=== PATIENT | female | born 1960 | race Caucasian/White ===

== ENCOUNTER → 2017-12-27 | Outpatient (CLI) | payer OTHER ==
--- NOTE | 2017-12-31 08:57 | Diagnostic Imaging Report ---
#[id number] - MGSCRBIL #BILATERAL DIGITAL SCREENING MAMMOGRAM WITH CAD: 12/27/2017 CLINICAL: Routine screening. Comparison is made to exams dated: 11/23/2016 mammogram and 10/19/2016 mammogram - [facility]. Current study contains 4 films. There are scattered fibroglandular elements in both breasts. Current study was also evaluated with a Computer Aided Detection (CAD) system. There are benign calcifications in both breasts. No significant masses, calcifications, or other findings are seen in either breast. There has been no significant interval change. IMPRESSION: BENIGN There is no mammographic evidence of malignancy. A 1 year screening mammogram is recommended. The patient will be notified by letter of the results. Joe erickson/maxim:12/30/2017 10:43:05 [employer] Control Room Operator: Zayra SALVADOR(R)(M), [facility] letter sent: Compared to Prior B9 Mammogram BI-RADS: 2 Benign
== END ==
LOC: MAMMO 09:27
PROVIDERS: ATTEND Internal Medicine
DX: Z12.31 Encounter for screening mammogram for malignant neoplasm of breast (principal)
CPT/HCPCS: 77067

== ENCOUNTER → 2018-02-04 | Day surgery (SDC) | payer OTHER ==
[~2018-02-04] MED LIST: FENTANYL CITRATE/PF 100MCG/2 ML INJ ONE; FOLIC ACID1 MG PO; LIDOCAINE HCL 2% LOCAL INJ 5 ML SDV VIAL INJ ONE; LISINOPRIL20 MG PO; MIDAZOLAM HCL 2 MG/2 ML VIAL ONE; MUSCLE RELAXER PO; PROPOFOL IV EMULSION 10 MG/ML 50 ML VIAL ONE
--- NOTE | 2018-02-04 14:53 | Operative Report ---
DATE OF PROCEDURE: February 04, 2018 REFERRING PHYSICIAN: Dr. Ben Fernandez PROCEDURES PERFORMED 1. Esophagogastroduodenoscopy with biopsies. 2. Colonoscopy with polypectomy. INDICATIONS FOR EGD: Nausea and vomiting. INDICATIONS FOR COLONOSCOPY: Colorectal cancer screening. MEDICATION: Patient was done under MAC. Please see anesthesiologist's note. PROCEDURE: With the patient in the left lateral decubitus position, the flexible fiberoptic Olympus gastroscope was introduced into the esophagus under direct visualization without any difficulty. Grade 1 esophageal varices were noted in the esophagus. The scope was then advanced with ease into the stomach traversing a small sliding hiatal hernia. Mucosa overlying the antrum revealed some diffuse erythema and moderate edema along with minimal portal hypertensive gastropathy changes. Biopsies were obtained and sent to stain for H. pylori. The mucosa overlying the body had more pronounced portal hypertensive gastropathy changes. The pylorus was of normal contour and shape. An ulcer was noted in the pyloric channel. There was no active bleeding. The scope was then advanced with ease all the way to the 2nd portion of the duodenum. The scope was then withdrawn slowly. Mucosa overlying the proximal 2nd portion appeared to be within normal limits. The duodenal bulb also was within normal limits. The scope was then withdrawn back into the stomach and retroflexed. The mucosa overlying the fundus and the cardia revealed changes compatible with portal hypertensive gastropathy. There were no fundal varices. The scope was then straightened out. The stomach was decompressed. The scope was subsequently withdrawn. Patient tolerated the procedure well. IMPRESSION 1. Grade 1 esophageal varices. 2. Small sliding hiatal hernia. 3. Gastritis, antrum, biopsied. Biopsies sent to stain for Helicobacter pylori. 4. Portal hypertensive gastropathy predominately in the body and the fundus. 5. Pyloric channel ulcer. PLAN: Follow up histology. Initiate Protonix 40 mg 1 p.o. q.a.m. a.c. Patient was then turned around. After adequate lubrication of the anal canal, a flexible fiberoptic Olympus colonoscope was inserted into the rectum with ease and advanced all the way to the cecum. It was then withdrawn slowly. Mucosa overlying the cecum, ascending and transverse, as well as the descending colon appeared to be within normal limits. Two polyps were snared and 8 polyps were hot biopsied from the sigmoid colon. Six polyps were hot biopsied from the rectum. The scope was then retroflexed into the distal rectum and small internal hemorrhoids were noted, none of which was actively bleeding. The scope was then straightened out. It was subsequently withdrawn. Patient tolerated the procedure well. IMPRESSION 1. Sigmoid colon polyps times 10, 2 snared and 8 hot biopsied. 2. Rectal polyps times 6, hot biopsied. 3. Internal hemorrhoids, none actively bleeding. A total of 16 polyps were removed. PLAN: Follow up histology. Initiate high-fiber and low-fat diet. Initiate high-fiber supplement. Patient might benefit from a followup colonoscopy in 1-2 years. Job#: [id number] RI cc:BEN FERNANDEZ MD
== END | disposition home or self-care (01) ==
LOC: OR 08:08
PROVIDERS: ATTEND Internal Medicine Gastroenterology
DX: Z12.11 Encounter for screening for malignant neoplasm of colon (principal); K63.5 Polyp of colon; K62.1 Rectal polyp; I85.00 Esophageal varices without bleeding; K44.9 Diaphragmatic hernia without obstruction or gangrene; K76.6 Portal hypertension; K31.89 Other diseases of stomach and duodenum; K25.9 Gastric ulcer, unspecified as acute or chronic, without hemorrhage or perforation; K64.8 Other hemorrhoids; K29.50 Unspecified chronic gastritis without bleeding; B96.81 Helicobacter pylori [H. pylori] as the cause of diseases classified elsewhere; R11.2 Nausea with vomiting, unspecified; B19.20 Unspecified viral hepatitis C without hepatic coma
CPT/HCPCS: 43239; 45384; 45385; 93005; J2001; J2250; 45378

== ENCOUNTER → 2018-02-11 | Outpatient (CLI) | payer OTHER ==
[~2018-02-11] MED LIST changes: -FENTANYL CITRATE/PF 100MCG/2 ML INJ ONE; +GADOBENATE DIMEGLUMINE 1 ML IV ONE; -LIDOCAINE HCL 2% LOCAL INJ 5 ML SDV VIAL INJ ONE; -MIDAZOLAM HCL 2 MG/2 ML VIAL ONE; -PROPOFOL IV EMULSION 10 MG/ML 50 ML VIAL ONE
--- NOTE | 2018-02-11 18:04 | Diagnostic Imaging Report ---
PROCEDURE: MRCP WITH AND WITHOUT CONTRAST TECHNIQUE: Axial T1 and and out of phase, axial T2, fat-sat, coronal, T2 with and without fat-sat, axial DWI, and ADC MR images of the abdomen were performed after the intravenous demonstration of 11 cc of gadolinium. Axial dynamic T1 GRE images were obtained. Precontrast, arterial, venous and delayed phases, as well as subtraction images. Delayed axial ASSETT postcontrast images were also obtained. Heavily T2-weighted MRCP images were also performed, including thick and thin slab ASSETT, 3-D breath hold FRFSE, and 3-D reconstructions. COMPARISON: None. INDICATIONS: Gallstones. History of pancreatitis. History of hepatitis C. FINDINGS: LOWER THORAX: Lung bases are clear. LIVER: Mild hepatomegaly, measuring 16.0 cm in the right mid clavicular line. Nodular hepatic contour. Mild signal dropout in out of phase images, consistent with mild steatosis. No suspicious enhancing lesions. BILIARY: No intrahepatic ductal dilation. Mild dilation of the common bile duct, which measures approximately 9 mm at the kartik hepatis (series 8, image 22 and series 12, image 11). Normal luminal contour, and tapering to the ampulla. No intraluminal filling defects or strictures. No filling defects in the gallbladder. No wall thickening or pericholecystic fluid.. PANCREAS: Normal parenchymal enhancement. No focal lesions. No ductal dilation. No peripancreatic increased T2 signal, inflammatory changes free fluid or fluid collections. SPLEEN: No splenomegaly. ADRENALS: No nodules. KIDNEYS: No hydronephrosis or solid, enhancing mass in the imaged portion of the kidneys. 1.1 x 0.9 cm mildly T1 hyperintense, T2, mildly hypointense lesion in the lateral interpolar right kidney (series 9, image 118), which shows no enhancement or restricted diffusion, consistent with a proteinaceous/hemorrhagic cyst. GI TRACT: Visualized bowel shows no dilation or obstruction. PERITONEUM / RETROPERITONEUM: No upper abdominal free fluid. LYMPH NODES: No upper abdominal lymphadenopathy. VESSELS: Celiac trunk, superior and inferior mesenteric, and bilateral renal arteries are patent. Portal, superior mesenteric, and splenic veins are patent. Main portal vein measures 1.0 cm. BONES AND SOFT TISSUES: No abnormal bone marrow signal. Soft tissues are grossly unremarkable. IMPRESSION: 1. mild dilation of the common bile duct. No intrahepatic biliary ductal dilation. No MR evidence of cholelithiasis or choledocholithiasis. No biliary strictures or extrinsic compressions. 2. Mildly enlarged cirrhotic liver with mild steatosis. No suspicious enhancing lesions are identified. 3. No MR evidence of pancreatitis. Normal enhancement. No focal lesions or ductal dilation. 4. 1.1 cm proteinaceous/hemorrhagic cyst in the right kidney. Deuce Das M.D. Dictated by: Deuce Das M.D. on 02/11/2018 at 18:08 Electronically approved by: Deuce Das M.D. on 02/11/2018 at 18:08
== END ==
LOC: MRI 07:22
PROVIDERS: ATTEND Internal Medicine Gastroenterology
DX: R11.2 Nausea with vomiting, unspecified (principal); B19.20 Unspecified viral hepatitis C without hepatic coma
CPT/HCPCS: 74183

== ENCOUNTER → 2018-06-17 | Outpatient (CLI) | payer OTHER ==
[~2018-06-17] MED LIST changes: -GADOBENATE DIMEGLUMINE 1 ML IV ONE; +IOPAMIDOL 370 MG/ML 200 ML INFUS..BTL INJ ONE; +SODIUM CHLORIDE 0.9% 250ML 500 ML ONE; +SODIUM CHLORIDE 0.9% 50ML 50 ML ONE
[2018-06-17 10:55] LABS: CREATININE, SERUM 1.11 mg/dL (0.57-1.11)
--- NOTE | 2018-06-17 12:12 | Diagnostic Imaging Report ---
EXAM: CT Abdomen and Pelvis WITH contrast INDICATION: Abdominal pain. Left leg pain and swelling. Liver problems. Hepatitis. Hypertension. COMPARISON: None. TECHNIQUE: Abdomen and pelvis were scanned utilizing a multidetector helical scanner from the lung base to the pubic symphysis after administration of IV contrast. Coronal and sagittal reformations were obtained. Routine protocol was performed. Scan was performed when during portal venous phase. IV CONTRAST: 100 mL of Isovue-370 ORAL CONTRAST: Water RADIATION DOSE: Total DLP: 246.32 mGy*cm Estimated effective dose: (DLP x 0.015 x size factor) mSv COMPLICATIONS: None FINDINGS: LINES and TUBES: None. LOWER THORAX: Unremarkable HEPATOBILIARY: Nodular contour of the liver consistent with cirrhosis. No focal hepatic lesions. Prominent common bile duct measuring 0.7 cm. The portal vein is prominent measuring 1.3 cm. GALLBLADDER: Small stones in the lumen of the gallbladder. No wall thickening. SPLEEN: The spleen is prominent in size. PANCREAS: No focal masses or ductal dilatation. ADRENALS: No adrenal nodules KIDNEYS/URETERS: Kidneys enhance symmetrically. No hydronephrosis. No cystic or solid mass lesions. No stones. GI TRACT: No abnormal distention, wall thickening, or evidence of bowel obstruction. PELVIC ORGANS/BLADDER: Unremarkable. LYMPH NODES: No lymphadenopathy. VESSELS: Scattered vascular calcifications.. PERITONEUM / RETROPERITONEUM: No free air or fluid. BONES: Scattered degenerative changes are seen.. SOFT TISSUES: Unremarkable. IMPRESSION: 1. Nodular contour of the liver consistent with cirrhosis. No focal liver mass is seen. The portal vein is prominent measuring 1.3 cm. 2. Gallstones in the lumen of the gallbladder. The common bile duct is prominent measuring 0.7 cm. Signed by: Dr. Kentrell Ye M.D. on 06/17/2018 12:09 PM
== END ==
LOC: CT 10:02
PROVIDERS: ATTEND Internal Medicine Gastroenterology
DX: R10.9 Unspecified abdominal pain (principal)
CPT/HCPCS: 36415; 74177; 82565; 84520; 96360; J7050; Q9967

== ENCOUNTER → 2018-08-12 | Outpatient (CLI) | payer OTHER ==
[~2018-08-12] MED LIST changes: +FENTANYL CITRATE/PF 100MCG/2 ML INJ ONE; +GELATIN SPONGE 12-7MM ONE; -IOPAMIDOL 370 MG/ML 200 ML INFUS..BTL INJ ONE; +MIDAZOLAM HCL 2 MG/2 ML VIAL ONE; -SODIUM CHLORIDE 0.9% 250ML 500 ML ONE; +SODIUM CHLORIDE 0.9% 500ML 500 ML ONE; -SODIUM CHLORIDE 0.9% 50ML 50 ML ONE
[2018-08-12 08:40] LABS: INR 1.06; PROTHROMBIN TIME 14.8 seconds (11.9-14.5)
[2018-08-12 08:41] LABS: PARTIAL THROMBOPLASTIN TIME 39.1 seconds (23.8-35.5)
--- NOTE | 2018-08-12 13:25 | Diagnostic Imaging Report ---
PROCEDURE:US GUIDED RANDOM LIVER BIOPSY COMPARISON:None. INDICATIONS: LIVER RANDOM BX FOR FIBROSIS AND HEPATITIS C COMPLICATIONS: None readily apparent MEDICATIONS: 1 mg of Versed and 50 mcg of fentanyl. She was continuously monitored during the procedure and following the procedure. BLOOD LOSS: Less than 2 cc PROCEDURE: Following informed consent and sterile preparation local anesthesia in a right rib interspace was obtained with 1% Xylocaine. Utilizing ultrasound guidance random liver biopsy was performed with a 20-gauge 2 cm throw biopsy gun through a 19 gauge guiding needle. Total of 3 biopsy specimens were obtained.Prior to removal of the guiding needle gelfoam slurry was injected to aid in hemostasis. Patient tolerated the procedure well. CONCLUSION: Successful ultrasound-guided random core biopsy of the right lobe of the liver. Joe Amaro D.O. Dictated by: Joe Amaro D.O. on 08/12/2018 at 13:36 Electronically approved by: Joe Amaro D.O. on 08/12/2018 at 13:36
== END ==
LOC: US 06:55
PROVIDERS: ATTEND Internal Medicine Gastroenterology
DX: K74.0 Hepatic fibrosis (principal)
CPT/HCPCS: 36415; 47000; 76942; 85049; 85610; 85730; 88307; J2250; J7040; 88313

== ENCOUNTER 2022-06-02 18:44 | Inpatient (IN) | payer OTHER ==
[~2022-06-02] VITALS: Ht 154.9 cm; Wt 52.6 kg
[~2022-06-02 18:44] MED LIST changes: -FENTANYL CITRATE/PF 100MCG/2 ML INJ ONE; -GELATIN SPONGE 12-7MM ONE; -MIDAZOLAM HCL 2 MG/2 ML VIAL ONE; -SODIUM CHLORIDE 0.9% 500ML 500 ML ONE
[2022-06-02 20:00] VITALS: BP 123/77
[2022-06-02] MEDS ORDERED: ACETAMINOPHEN 325 MG TAB PO PRN (20:30)
[2022-06-02] MEDS ORDERED: ONDANSETRON HCL INJ 2MG/ML 2ML 2 MG/ML VIAL IV PRN (20:30)
[2022-06-02] MEDS ORDERED: LACTULOSE20 GM/30 M PO (20:43)
[2022-06-02] MEDS ORDERED: SODIUM BICARBO650 MG PO (20:43)
[2022-06-02] MEDS ORDERED: FUROSEMIDE40 MG PO (20:43)
[2022-06-02] MEDS ORDERED: PROTONIX20 MG PO (20:43)
[2022-06-02] MEDS ORDERED: B-1100 M1 PO (20:43)
[2022-06-02] MEDS ORDERED: SPIRONOLACTONE25 MG PO (20:43)
[2022-06-02] MEDS ORDERED: XIFAXAN550 MG PO (20:43)
[2022-06-02] MEDS ORDERED: POTASSIUM CHLO20 ME1 PO (20:43)
[2022-06-02] MEDS ORDERED: PROPRANOLOL HCL10 MG PO (20:43)
[2022-06-02] MEDS ORDERED: LACTULOSE SYRUP 20 GM/30 ML UDC PO SCH (21:00)
[2022-06-02 21:26] LABS: ANION GAP 15.4 mmol/L (8-16); CALCIUM 9.2 mg/dL (8.4-10.2); CREATININE, SERUM 1.75 mg/dL (0.57-1.11); POTASSIUM 4.4 mmol/L (3.5-5.1)
[2022-06-02 21:47] LABS: BASOPHILS # (AUTO) 0.1 (0.0-0.1); BASOPHILS % 0.5 % (0.0-1.0); EOSINOPHILS # (AUTO) 0.2 (0.0-0.4); EOSINOPHILS % 1.8 % (0.0-6.0); HEMATOCRIT 29.5 % (34.2-44.1); HEMOGLOBIN 9.7 g/dL (12.0-16.0); LYMPHOCYTES # (AUTO) 0.6 (1.0-3.2); LYMPHOCYTES % 5.3 % (18.0-39.1); MEAN CORPUSCULAR HEMOGLOBIN 31.2 pg (28-32); MEAN CORPUSCULAR HGB CONC 32.9 g/dL (31-35); MEAN CORPUSCULAR VOLUME 94.9 fL (81-99); MONOCYTES # (AUTO) 1.3 (0.2-0.8); MONOCYTES % 11.5 % (4.4-11.3); NEUTROPHILS # (AUTO) 9.1 (2.1-6.9); NEUTROPHILS % 79.8 % (38.7-80.0); RED BLOOD COUNT 3.11 x10e6/uL (3.6-5.1); RED CELL DISTRIBUTION WIDTH 19.1 % (11.7-14.4)
[2022-06-02 21:48] VITALS: BP 123/77
[2022-06-02 21:48] LABS: PLATELET COUNT 74 x10e3/uL (140-360)
[2022-06-02 21:50] VITALS: BP 123/77
[2022-06-02] MEDS ORDERED: LIDOCAINE 4% PATCH TP PRN (23:00)
[2022-06-02] MEDS ORDERED: DEXTROSE 50% SYRINGE 50 ML IV PRN (23:00)
[2022-06-02] MEDS ORDERED: TRAMADOL HCL 50 MG TAB PO PRN (23:00)
[2022-06-02] MEDS ORDERED: ALBUTEROL/IPRATROPIUM 3 ML NEB NEB PRN (23:00)
[2022-06-02] MEDS ORDERED: HYDRALAZINE HCL 20 MG/ML VIAL IV PRN (23:00)
[2022-06-02] MEDS ORDERED: SIMETHICONE 80 MG CHEW PO PRN (23:00)
[2022-06-02] MEDS ORDERED: MELATONIN 5 MG TABLET PO PRN (23:00)
[2022-06-02] MEDS ORDERED: DIPHENHYDRAMINE HCL 25 MG CAP PO PRN (23:00)
[2022-06-02] MEDS ORDERED: DOCUSATE SODIUM 100 MG CAP PO PRN (23:00)
[2022-06-02] MEDS ORDERED: BENZONATATE 100 MG CAP PO PRN (23:00)
[2022-06-02] MEDS: RIFAXIMIN 550 MG TABLET PO SCH (23:43)
[2022-06-03] VITALS (7 sets, daily range): BP systolic 102–145; BP diastolic 52–79
[2022-06-03 05:38] LABS: BASOPHILS # (AUTO) 0.1 (0.0-0.1); BASOPHILS % 0.5 % (0.0-1.0); EOSINOPHILS # (AUTO) 0.2 (0.0-0.4); HEMATOCRIT 28.7 % (34.2-44.1); HEMOGLOBIN 9.6 g/dL (12.0-16.0); LYMPHOCYTES # (AUTO) 0.7 (1.0-3.2); LYMPHOCYTES % 6.9 % (18.0-39.1); MEAN CORPUSCULAR HEMOGLOBIN 31.3 pg (28-32); MEAN CORPUSCULAR HGB CONC 33.4 g/dL (31-35); MEAN CORPUSCULAR VOLUME 93.5 fL (81-99); MONOCYTES # (AUTO) 1.1 (0.2-0.8); MONOCYTES % 10.8 % (4.4-11.3); NEUTROPHILS % 78.7 % (38.7-80.0); PLATELET COUNT 72 x10e3/uL (140-360); RED BLOOD COUNT 3.07 x10e6/uL (3.6-5.1); RED CELL DISTRIBUTION WIDTH 18.9 % (11.7-14.4)
[2022-06-03 05:41] LABS: ANION GAP 13.8 mmol/L (8-16); CALCIUM 9.1 mg/dL (8.4-10.2); CREATININE, SERUM 1.66 mg/dL (0.57-1.11); PHOSPHORUS 2.5 MG/DL (2.3-4.7); POTASSIUM 3.8 mmol/L (3.5-5.1)
[2022-06-03 05:43] LABS: MAGNESIUM 1.1 MG/DL (1.3-2.1)
[2022-06-03 06:04] LABS: THYROID STIMULATING HORMONE 1.571 uIU/mL (0.350-4.940)
[2022-06-03] MEDS ORDERED: MAGNESIUM SULFATE 2GM/50ML 50 ML IV ONE (06:15)
[2022-06-03] MEDS ORDERED: SODIUM BICARBONATE 650 MG TAB PO SCH (09:00)
[2022-06-03] MEDS: LACTULOSE SYRUP 20 GM/30 ML UDC PO SCH ×3 (09:35→21:46)
[2022-06-03] MEDS: PANTOPRAZOLE SOD 40 MG TABEC PO SCH ×2 (09:36→16:29)
[2022-06-03] MEDS: THIAMINE HCL 100 MG TAB PO SCH (09:36)
[2022-06-03] MEDS: FOLIC ACID 1 MG TAB PO SCH (09:36)
[2022-06-03] MEDS: SPIRONOLACTONE 25 MG TAB PO SCH (09:36)
[2022-06-03] MEDS: PROPRANOLOL HCL 10 MG TAB PO SCH ×2 (09:37→16:30)
[2022-06-03] MEDS: FUROSEMIDE 40 MG TAB PO SCH (09:38)
[2022-06-03] MEDS: SODIUM BICARBONATE 650 MG TAB PO SCH ×3 (11:00→21:46)
[2022-06-03] MEDS: RIFAXIMIN 550 MG TABLET PO SCH ×2 (12:36→22:54)
[2022-06-04] VITALS (7 sets, daily range): BP systolic 99–121; BP diastolic 50–73
[2022-06-04 06:02] LABS: BASOPHILS # (AUTO) 0.1 (0.0-0.1); BASOPHILS % 0.6 % (0.0-1.0); EOSINOPHILS # (AUTO) 0.3 (0.0-0.4); EOSINOPHILS % 3.1 % (0.0-6.0); HEMATOCRIT 28.2 % (34.2-44.1); HEMOGLOBIN 9.1 g/dL (12.0-16.0); LYMPHOCYTES # (AUTO) 0.8 (1.0-3.2); LYMPHOCYTES % 8.9 % (18.0-39.1); MEAN CORPUSCULAR HEMOGLOBIN 30.8 pg (28-32); MEAN CORPUSCULAR HGB CONC 32.3 g/dL (31-35); MEAN CORPUSCULAR VOLUME 95.6 fL (81-99); MONOCYTES # (AUTO) 1.2 (0.2-0.8); MONOCYTES % 13.3 % (4.4-11.3); NEUTROPHILS # (AUTO) 6.5 (2.1-6.9); NEUTROPHILS % 73.1 % (38.7-80.0); PLATELET COUNT 79 x10e3/uL (140-360); RED BLOOD COUNT 2.95 x10e6/uL (3.6-5.1); RED CELL DISTRIBUTION WIDTH 18.6 % (11.7-14.4)
[2022-06-04 06:30] LABS: CALCIUM 8.8 mg/dL (8.4-10.2); CREATININE, SERUM 1.75 mg/dL (0.57-1.11); MAGNESIUM 1.9 MG/DL (1.3-2.1); PHOSPHORUS 2.6 MG/DL (2.3-4.7)
[2022-06-04] MEDS: LACTULOSE SYRUP 20 GM/30 ML UDC PO SCH ×3 (09:45→21:14)
[2022-06-04] MEDS: PANTOPRAZOLE SOD 40 MG TABEC PO SCH ×2 (09:45→16:00)
[2022-06-04] MEDS: THIAMINE HCL 100 MG TAB PO SCH (09:46)
[2022-06-04] MEDS: PROPRANOLOL HCL 10 MG TAB PO SCH ×2 (09:46→16:00)
[2022-06-04] MEDS: FOLIC ACID 1 MG TAB PO SCH (09:46)
[2022-06-04] MEDS: SPIRONOLACTONE 25 MG TAB PO SCH (09:46)
[2022-06-04] MEDS: SODIUM BICARBONATE 650 MG TAB PO SCH ×3 (09:47→21:14)
[2022-06-04] MEDS: POTASSIUM CHLORIDE 20 MEQ TAB CR PO PRN (09:48)
[2022-06-04] MEDS: FUROSEMIDE 40 MG TAB PO SCH (09:50)
[2022-06-04] MEDS: RIFAXIMIN 550 MG TABLET PO SCH ×2 (12:46→23:57)
[2022-06-04] MEDS ORDERED: ALBUMIN 25% 12.5GM 0.25 GM/ML BTL IV PRN (13:30)
[2022-06-04] MEDS ORDERED: LIDOCAINE 1% 10 ML MULTIDOSE VIAL IJ ONE (14:15)
[2022-06-04 15:14] LABS: INR 1.29; PROTHROMBIN TIME 17.2 seconds (11.9-14.5)
[2022-06-04] MEDS ORDERED: ALBUMIN 25% 12.5GM 50ML 100 ML IV ONE (16:14)
[2022-06-05] VITALS: BP 108/73
[2022-06-05 06:07] LABS: CALCIUM 8.8 mg/dL (8.4-10.2); CREATININE, SERUM 1.97 mg/dL (0.57-1.11)
[2022-06-05] MEDS: SODIUM BICARBONATE 650 MG TAB PO SCH ×2 (08:41→15:24)
[2022-06-05] MEDS: THIAMINE HCL 100 MG TAB PO SCH (08:41)
[2022-06-05] MEDS: PANTOPRAZOLE SOD 40 MG TABEC PO SCH ×2 (08:41→15:29)
[2022-06-05] MEDS: FOLIC ACID 1 MG TAB PO SCH (08:41)
[2022-06-05] MEDS: LACTULOSE SYRUP 20 GM/30 ML UDC PO SCH ×2 (08:42→15:24)
[2022-06-05] MEDS: SPIRONOLACTONE 25 MG TAB PO SCH (08:42)
[2022-06-05] MEDS: PROPRANOLOL HCL 10 MG TAB PO SCH ×2 (08:43→15:30)
[2022-06-05] MEDS: POTASSIUM CHLORIDE 20 MEQ TAB CR PO PRN (08:44)
[2022-06-05 08:47] VITALS: BP 127/78
[2022-06-05 08:52] VITALS: BP 127/78
[2022-06-05] MEDS: FUROSEMIDE 40 MG TAB PO SCH (11:57)
[2022-06-05] MEDS: RIFAXIMIN 550 MG TABLET PO SCH (11:58)
[2022-06-05] MEDS ORDERED: HYDROXYZINE HCL 25 MG TAB PO PRN (12:30)
[2022-06-05 12:33] VITALS: BP 103/53
[2022-06-05] MEDS ORDERED: POTASSIUM CHLORIDE 20 MEQ TAB CR PO ONE (14:00)
[2022-06-05 15:07] VITALS: BP 120/71
== END 2022-06-05 15:46 | disposition home health service (06) | DRG 433 ==
LOC: MED/SURG3 18:44
PROVIDERS: ADMIT Internal Medicine; ATTEND Internal Medicine
PROC: 0W9G3ZZ Drainage of Peritoneal Cavity, Percutaneous Approach (ICD-10-PCS; principal; 2022-06-04)
DX: K70.31 Alcoholic cirrhosis of liver with ascites (principal); E87.20 Acidosis, unspecified; N17.9 Acute kidney failure, unspecified; K76.82 Hepatic encephalopathy; D69.59 Other secondary thrombocytopenia; F10.10 Alcohol abuse, uncomplicated; E83.42 Hypomagnesemia; Z20.822 Contact with and (suspected) exposure to COVID-19
CPT/HCPCS: 0223U; 36415; 49083; 74470; 80048; 80053; 82140; 83735; 84100; 84443; 85025; 85610; 99251; C1729; J2405; J3410; J3411; J3475